=== PATIENT | male | born 1960 | race Caucasian/White ===

== ENCOUNTER → 2016-07-08 | Outpatient (CLI) | payer MEDICAID | LOC: FIMAGING 14:45 | PROVIDERS: ATTEND Internal Medicine | DX: R60.9 Edema, unspecified (principal) ==

== ENCOUNTER 2017-05-02 01:37 | Emergency (ER) | payer MEDICAID ==
[2017-05-02 01:51] VITALS: BP 123/92; PULSE 88; RESP 20; TEMP 97.2; O2SAT 100
--- NOTE | 2017-05-02 02:12 | EDPHY ---
H & P Stated Complaint: right foot infection Time Seen by Provider: 05/02/17 02:20 HPI/ROS: HPI CHIEF COMPLAINT: Leg cellulitis HISTORY OF PRESENT ILLNESS: This patient is a 56-year-old male, history of thyroid disease, but does not take thyroid medication she presents emergency room with cellulitis to the left lateral leg superior to the left knee. He states been there for 48 hr. They are discrete 3 round lesions that appear excoriated. No mary pus. Minimal redness. Mild tenderness to palpation. No fever. Denies significant pain. Past Medical History: Thyroid disease Past Surgical History: Is no recent surgery Social History: Denies drugs alcohol tobacco products. Homeless. Family History: Noncontributory ROS REVIEW OF SYSTEMS: A comprehensive 10 point review of systems is otherwise negative aside from elements mentioned in the history of present illness. Exam Constitutional appears well nontoxic vital signs reviewed, triage nursing summary reviewed, vital signs reviewed, awake/alert. Eyes normal conjunctivae and sclera, EOMI, PERRLA. HENT normal inspection, atraumatic, moist mucus membranes, no epistaxis, neck supple/ no meningismus, no raccoon eyes. Respiratory clear to auscultation bilaterally, normal breath sounds, no respiratory distress, no wheezing. Cardiovascular rate normal, regular rhythm, no murmur, no edema, distal pulses normal. Gastrointestinal soft, non-tender, no rebound, no guarding, normal bowel sounds, no distension, no pulsatile mass. Genitourinary no CVA tenderness. Musculoskeletal no midline vertebral tenderness, full range of motion, no calf swelling, no tenderness of extremities, no meningismus, good pulses, neurovascularly intact. Skin 3 discrete lesions to the left lateral leg proximal left knee. Area of cellulitis 3 cm x 4 cm. No mary pus. No crepitus. No significant tenderness on exam. Neurologic awake, alert and oriented x 3, AAOx3, moves all 4 extremities equally, motor intact, sensory intact, CN II-XII intact, normal cerebellar, normal vision, normal speech. Psychiatric normal mood/affect. Heme/Lymph/Immune no lymphadenopathy. Differential Diagnosis: Includes but is not limited to in left leg cellulitis, excoriated leg lesions Medical Decision Making: Plan for this patient p.o. Bactrim here and p.o. Keflex. 1st dose given in emergency room. Additionally recommend dressing in place and warm compresses 3 to 5 times a day. Take-home packs provided. Prescriptions also provided. Return precautions discussed. Re-evaluation: Patient understands return emergency room if develops worsening cellulitis, fever, pain. Source: Patient - Personal History Current Tetanus Diphtheria and Acellular Pertussis (TDAP): Unsure - Medical/Surgical History Hx Asthma: No Hx Chronic Respiratory Disease: No Hx Diabetes: No Hx Cardiac Disease: No Hx Renal Disease: No Hx Cirrhosis: No Hx Alcoholism: No Hx HIV/AIDS: No Hx Splenectomy or Spleen Trauma: No Other PMH: denies - Social History Smoking Status: Former smoker Constitutional: Initial Vital Signs Temperature (C) 36.2 C 05/02/17 01:49 Heart Rate 88 05/02/17 01:49 Respiratory Rate 20 05/02/17 01:49 Blood Pressure 123/92 H 05/02/17 01:49 O2 Sat (%) 100 05/02/17 01:49 O2 Delivery Mode Room Air Allergies/Adverse Reactions: No Known Allergies Allergy (Verified 05/02/17 01:46) Home Medications: Medication Instructions Recorded NO HOME MEDICATIONS 01/09/11 Sulfamethox/Tmp 800/160 mg 1 tab PO BID@1000,2200 #14 tab 09/17/15 [Bactrim Ds] Cephalexin [Keflex] 500 mg PO Q6H #28 cap 05/02/17 Sulfamethox/Tmp 800/160 mg 1 tab PO BID@1000,2200 #14 tab 05/02/17 [Bactrim Ds] Departure - Departure Disposition: Home, Routine, Self-Care Clinical Impression: Cellulitis Qualifiers: Site of cellulitis: unspecified site Qualified Code(s): L03.90 - Cellulitis, unspecified Condition: Good Instructions: Cellulitis (ED) Additional Instructions: 1. Take antibiotics as prescribed. 2. Return emergency room if you have worsening symptoms questions or concerns. 3. Warm compresses 3 to 5 times a day to help with infection. Referrals: Gabby Pantoja, PAC [Primary Care Provider] - As per Instructions Prescriptions: Cephalexin [Keflex] 500 mg PO Q6H #28 cap Sulfamethox/Tmp 800/160 mg [Bactrim Ds] 1 tab PO BID@1000,2200 #14 tab
[2017-05-02] MEDS ORDERED: CEPHALEXIN 500MG PREPACK#4 BTL TAKEHOME ONE (02:17)
[2017-05-02] MEDS ORDERED: SULFAMETHOX/TMP 800/160 MG 1 TAB PO ONE (02:17)
[2017-05-02] MEDS ORDERED: CEPHALEXIN 500 MG CAP PO ONE (02:17)
[2017-05-02] MEDS ORDERED: SULFAMET/TMP DS PREPACK#2 BTL TAKEHOME ONE (02:17)
== END 2017-05-02 02:46 | disposition home or self-care (01) ==
DX: L03.116 Cellulitis of left lower limb (principal); Z87.891 Personal history of nicotine dependence

== ENCOUNTER 2017-07-07 20:46 | Emergency (ER) | payer MEDICAID ==
--- NOTE | 2017-07-07 21:34 | EDPHY ---
H & P Source: Patient, RN/MD Exam Limitations: No limitations - Medical/Surgical History Hx Asthma: No Hx Chronic Respiratory Disease: No Hx Diabetes: No Hx Cardiac Disease: No Hx Renal Disease: No Hx Cirrhosis: No Hx Alcoholism: No Hx HIV/AIDS: No Hx Splenectomy or Spleen Trauma: No Other PMH: denies - Social History Smoking Status: Former smoker Time Seen by Provider: 07/07/17 21:34 HPI/ROS: HPI: This is a 57-year-old male who presents with Chief Complaint: Suicidal ideation Location: psych Quality: Suicidal ideation Duration: Months Signs and Symptoms: no auditory and visual command hallucinations, + suicidal ideation with a plan, no homicidal ideation, no paranoia Timing: Worsening Severity: Severe Context: 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 He reports that he has been severely depressed over the last couple months. His daughter on her 18th birthday 1 month ago told him that he needed to and she did want him in her life anymore. Patient hopes that his lab work is abnormal and that he is going to soon. Patient reports that he has nothing left to live for. He does not believe in any pharmacotherapy. Denies any former psychiatric history including depression, anxiety, bipolar disorder, schizophrenia. Denies prior inpatient psychiatric hospitalization. Denies alcohol and recreational drug use. Modifying Factors: None Comment: ROS: see HPI Constitutional: No fever, no chills, no weight loss Eyes: No blurred vision Respiratory: No shortness of breath, no cough Cardiovascular: No chest pain Gastrointestinal: No nausea, no vomiting, no diarrhea Genitourinary: No dysuria Extremities: No myalgias Neurologic: No weakness, no numbness Skin: No rashes Hematologic: No bruising, no bleeding MEDICAL/SURGICAL/SOCIAL HISTORY: Medical history: Generally healthy. Does not take any regular medications. Surgical history: Denies Social history: Former smoker. Family history noncontributory. CONSTITUTIONAL: Flat affect, middle-aged white male, lying flat on the stretcher, awake and alert, no obvious distress HEENT: Atraumatic and normocephalic, PERRL, EOMI. Nares patent; no rhinorrhea; no nasal mucosal edema. Tympanic membranes clear. Oropharynx clear, no exudate and moist pink mucosa. Airway patent. No lymphadenopathy. No meningismus. Cardiovascular: Normal S1/S2, regular rate, regular rhythm, without murmur rub or gallop. PULMONARY/CHEST: Symmetrical and nontender. Clear to auscultation bilaterally. Good air movement. No accessory muscle usage. ABDOMEN: Soft, nondistended, nontender, no rebound, no guarding, no peritoneal signs, no masses or organomegaly. No CVAT. EXTREMITIES: 2/2 pulses, strength 5/5, no deformities, no clubbing, no cyanosis or edema. NEUROLOGICAL: no focal neuro deficits. GCS 15. SKIN: Warm and dry, no erythema. no rash. Good capillary refill. PSYCH: Poor eye contact, no flight of ideas, tangential disorganized thought process, fair insight and judgment, no auditory and visual command hallucinations, + suicidal ideation with a plan, no homicidal ideation, not paranoid (Libra Hatch) Constitutional: Initial Vital Signs Temperature (C) 36.4 C 07/07/17 21:00 Heart Rate 83 07/07/17 21:00 Respiratory Rate 18 07/07/17 21:00 Blood Pressure 124/93 H 07/07/17 21:00 O2 Sat (%) 100 07/07/17 21:00 O2 Delivery Mode Room Air Allergies/Adverse Reactions: No Known Allergies Allergy (Verified 07/07/17 21:41) Home Medications: Medication Instructions Recorded NO HOME MEDICATIONS 01/09/11 Medical Decision Making ED Course/Re-evaluation: 2143: Placed on M1 hold upon arrival due to severe major depression and suicidal ideation with a plan. Labs and UDS ordered. Patient is currently calm and cooperative. Politely declines any chemical intervention at this time. 2212: Urine drug screen is positive for amphetamines and marijuana. Reports me that he takes no medication. Will have to wait until 9:30 a.m. For medical clearance before EPS will evaluate patient. 0027: Reassessed patient who is sleeping soundly. No chemical interventions required my entire shift. Signed over to Dr. Ayala. This patient was seen under the supervision of my secondary supervising physician. I evaluated care for this patient independently. Discussed this patient with Dr. Ayala who did not see the patient. (Libra Hatch) 0700AM: 06/08/17: Patient signed over to Dr. Wilson at 7am Shift-change. Needs Mental Health Eval. (Fernando Ayala) 1:15 p.m. Patient has been evaluated by mental health. They are looking for a crisis stabilization unit bed (Troy Wilson) Differential Diagnosis: Differential diagnosis includes but is not limited to functional in situational depression, schizoaffective disorder, bipolar disorder depressive type. (Libra Hatch) Other Provider: I assumed care of the patient at 3pm pending psychiatric disposition. Update at 6:30pm: The patient has been accepted at [facility] by SAMANTHA Hernandez. I have filled out the EMTALA transfer sheet. (Jose Galarza) Care Turn Over: Care was signed over to Dr. Galarza at 3:00 p.m. (Troy Wilson) - Data Points Laboratory Results: Laboratory Results 07/07/17 21:55 07/07/17 21:55 Departure - Departure Disposition: Home, Routine, Self-Care Clinical Impression: Severe major depression, Suicidal behavior with attempted self-injury Condition: Good Referrals: NONE *PRIMARY CARE P,. [Primary Care Provider] - As per Instructions
[2017-07-07 22:06] LABS: PLATELET COUNT 245 10^3/uL (150-400)
[2017-07-08 19:07] VITALS: BP 122/72
== END 2017-07-08 18:50 | disposition home or self-care (01) ==
DX: R45.851 Suicidal ideations (principal); F33.2 Major depressive disorder, recurrent severe without psychotic features; Z87.891 Personal history of nicotine dependence
CPT/HCPCS: 80305; G0480